=== PATIENT | male | born 1975 | race Caucasian/White ===

== ENCOUNTER → 2016-12-23 | Outpatient (CLI) | payer OTHER ==
[~2016-12-23] MED LIST: GABA-113 PO; KETO10TA PO; LEVO200T6 PO; LEVO25TA5 PO; LEVO75TA5 PO; METH4PAK PO; MULTTAB58 PO; OMEG10007 PO; OXYC1TAB3 PO
--- NOTE | 2016-12-23 08:15 | DIAGNOSTIC IMAGING REPORT ---
THYROID ULTRASOUND HISTORY: Thyroid goiter. COMPARISON: None. FINDINGS: Right lobe: 4.5 x 1.5 x 1.4 cm. No nodules. Left lobe: 4.6 x 1.6 x 1.5 cm. There is a dominant solid 2 cm nodule within the lower pole which contains calcification. Isthmus: 4 mm in thickness. No nodules. IMPRESSION: A dominant 2 cm solid hypoechoic nodule within the lower pole of the left thyroid lobe. Recommend ultrasound-guided fine-needle aspiration. Electronically signed by: Cristopher Eddy M.D. 12/23/2016 8:13 AM Dictated Date/Time: 12/23/2016 8:11 AM
== END | disposition home or self-care (01) ==
LOC: C.ULTR 07:39
PROVIDERS: ATTEND Internal Medicine
DX: E04.9 Nontoxic goiter, unspecified (principal)

== ENCOUNTER → 2016-12-29 | Outpatient (CLI) | payer OTHER ==
--- NOTE | 2016-12-29 13:44 | Discharge Instructions ---
Discharge Instructions Procedure Procedure Date: Dec 29, 2016. Reason for visit: Thyroid Nodule L Inferior. Discharge Discharge Date: Dec 29, 2016. Discharge Diagnosis: same Instructions Activity Recommendations: No limitations Return to School/Work: no limitations Recommended Home Diet: Resume Previous Diet Provider Instructions: ACTIVITY RECOMMENDATIONS: * Rest today. * Resume regular activity in one day. MEDICATIONS: * May take Tylenol or Ibuprofen as needed for pain. DIET: * Resume previous diet. SPECIAL CARE INSTRUCTIONS: Call your doctor if: * Temperature above 101 degrees F. * Pain not relieved by pain medicine ordered. * Increased drainage or redness from incision. * Notify your doctor with any questions or concerns. Call your doctor or go to the nearest Emergency Department if you experience: * Increased chest pain or shortness of breath. FOLLOW UP VISIT: Follow-up with Referring Physician as scheduled. Allergies Coded Allergies: Amoxicillin (Verified Allergy, Intermediate, rash, 10/01/15) POLLEN (Verified Allergy, Intermediate, congestion, 10/01/15) Penicillins (Verified Allergy, Mild, RASH, 10/01/15) Raul Fitch Recommendations: Call your doctor if: * Temperature above 101 degrees * Pain not relieved by pain medicine ordered * There is increased drainage or redness from any incision * You have any unanswered questions or concerns. Your Doctors Instructions noted above were prepared by provider Cristopher Eddy. Patient Signature Section: Patient Instructions Signature Page Alan Nava Patient (or Guardian) Signature/Date: I have read and understand the instructions given to me by my caregivers. Caregiver/RN/Doctor Signature/Date: The above-named patient and/or guardian has received patient instructions on this date. + Original Patient Signature Page (only) stays with chart. Please make copy for patient.
--- NOTE | 2016-12-29 13:53 | DIAGNOSTIC IMAGING REPORT ---
ULTRASOUND-GUIDED FINE-NEEDLE ASPIRATION OF A LEFT THYROID NODULE HISTORY: Left thyroid nodule. COMPARISON: Thyroid ultrasound 12/23/2016. PROCEDURE: Written informed consent was obtained. The neck was prepped and draped in the usual sterile fashion. 1% lidocaine was used for local anesthesia. A total of 2 passes using a 25-gauge needle were made through the left thyroid nodule under ultrasound guidance. Specimens were given to the on-site pathologist who determined adequate tissue for diagnosis. The patient tolerated the procedure well. There were no immediate complications. IMPRESSION: Successful ultrasound-guided fine-needle aspiration of a left thyroid nodule. Electronically signed by: Cristopher Eddy M.D. 12/29/2016 1:51 PM Dictated Date/Time: 12/29/2016 1:51 PM
== END | disposition home or self-care (01) ==
LOC: C.ULTR 12:48
PROVIDERS: ATTEND Internal Medicine Endocrinology, Diabetes & Metabolism
DX: C73 Malignant neoplasm of thyroid gland (principal)

== ENCOUNTER 2017-02-11 09:53 | Inpatient (IN) | payer OTHER ==
[2017-02-02 13:42] VITALS: BMI 34.0
--- NOTE | 2017-02-02 14:21 | PAT Medication Instructions ---
Service Date Feb 02, 2017. Current Home Medication List Fish Oil ([place]ison-3), 1 CAP PO QDD Levothyroxine Sodium (Levothyroxine Sodium), 1 TAB PO QAM Multiple Vitamin (Multivitamin), 1 TAB PO QDD Medication Instructions For Your Scheduled Surgery - Hold the following medications starting today 02/02/17: Fish Oil (Madison-3), 1 CAP PO QDD - Hold the following medications the morning of surgery: Multiple Vitamin (Multivitamin), 1 TAB PO QDD - Take the following medications the morning of surgery with a sip of water: Levothyroxine Sodium (Levothyroxine Sodium), 1 TAB PO QAM If you have any questions please call us at [phone] or [phone] ( Rosa Maria) or [phone]
[2017-02-02 14:48] LABS: BASO % 0.2 %; BASO ABS # 0.01 K/uL (0-0.2); COMPLETE YES; EOS % 0.7 %; HEMATOCRIT 41.8 % (42-52); IG% 0.2 %; LYMPH % 33.5 %; LYMPH ABS # 1.79 K/uL (1.2-3.4); MEAN CELL VOLUME 88.4 fL (80-100); MEAN CORPUSCULAR HEMOGLOBIN 30.7 pg (25-34); MEAN CORPUSCULAR HGB CONC 34.7 g/dl (32-36); MONO % 8.4 %; PLATELET COUNT 249 K/uL (130-400); RED BLOOD COUNT 4.73 M/uL (4.7-6.1); WHITE BLOOD COUNT 5.35 K/uL (4.8-10.8)
[2017-02-02 15:12] LABS: BUN/CREATININE RATIO 22.4 (10-20); CALCIUM 8.8 mg/dl (8.5-10.1); CREATININE 1.1 mg/dl (0.60-1.40); POTASSIUM 3.9 mmol/L (3.5-5.1)
[2017-02-11] VITALS (9 sets, daily range): BP systolic 114–142; BP diastolic 71–80; PULSE 54–71; TEMP 36.5–36.8; O2SAT 96–100; Ht 182.9 cm; Wt 113.8 kg
[~2017-02-11] VITALS: Ht 182.9 cm; Wt 113.8 kg
[~2017-02-11 09:53] MED LIST changes: +CLINDAMYCIN IV 900 MG in DEXTROSE 5% ADD-VANTAGE 100ML 100 ML IV SCH; +CLINDAMYCIN PHOS 150 MG/ML 2 ML VIAL IV SCH; -GABA-113 PO; -KETO10TA PO; +LACTATED RINGER'S 1000ML 1,000 ML IV SCH; -LEVO200T6 PO; -LEVO25TA5 PO; -METH4PAK PO; -OXYC1TAB3 PO
[2017-02-11] MEDS ORDERED: ONDANSETRON INJ 2 MG/ML 2 ML VIAL IV PRN ×2 (12:15→15:45)
[2017-02-11] MEDS ORDERED: EpHEDrine SULFATE INJ 50 MG/ML AMP IV PRN (12:15)
[2017-02-11] MEDS ORDERED: PHENYLEPHRINE 100MCG/ML 5ML SYR IV PRN (12:15)
[2017-02-11] MEDS ORDERED: ATROPINE SULFATE 0.1 MG/ML 5ML SYR IV PRN (12:15)
[2017-02-11] MEDS ORDERED: LIDOCAINE HCL 2% 2 ML VIAL (20MG/ML) ONE (12:27)
[2017-02-11] MEDS ORDERED: MIDAZOLAM HCL 1 MG/ML 2ML VIAL ONE (12:27)
[2017-02-11] MEDS ORDERED: PROPOFOL IV EMULSION 10 MG/ML 20 ML VIAL IV ONE (12:27)
[2017-02-11] MEDS ORDERED: ROCURONIUM BROMIDE 10 MG/ML 5 ML VIAL ONE (12:27)
[2017-02-11] MEDS ORDERED: SUCCINYLCHOLINE CHLORIDE 20 MG/ML 10 ML VIAL IV ONE (12:27)
[2017-02-11] MEDS ORDERED: FENTANYL CITRATE INJ 50 MCG/1 ML 2 ML VIAL ONE ×2 (12:28→16:04)
--- NOTE | 2017-02-11 12:45 | History & Physical Bridge Note ---
H&P Re-Evaluation Bridge Note: I have examined the patient, reviewed the History & Physical and in the interval since the performance of the History & Physical I have noted the following changes of clinical significance: No changes noted
[2017-02-11] MEDS ORDERED: LIDOCAINE/EPINEPHRINE 1% 20 ML VIAL ONE (13:15)
[2017-02-11] MEDS ORDERED: BACITRACIN OINT 15 GM TUBE ONE (13:15)
[2017-02-11] MEDS ORDERED: THROMBIN 5000 UNITS KIT ONE (13:16)
[2017-02-11] MEDS ORDERED: DEXAMETHASONE SOD INJ 4 MG/ML VIAL ONE (13:45)
[2017-02-11] MEDS ORDERED: ONDANSETRON INJ 2 MG/ML 2 ML VIAL ONE (13:45)
[2017-02-11] MEDS ORDERED: SURGICEL ABSORB HEMOSTAT 2IN X 14IN TOP ONE (15:30)
[2017-02-11] MEDS ORDERED: LACTATED RINGER'S 1000ML 1,000 ML IV SCH (15:37)
--- NOTE | 2017-02-11 15:37 | [facility] Operative Report ---
Operative Report Operative Date Feb 11, 2017. Pre-Operative Diagnosis Papillary carcinoma of thyroid Post-Operative Diagnosis SAME Procedure(s) Performed TOTAL THYROIDECTOMY Surgeon Dr. Jude Tipton Oyster Worker Surgeon(s) Candy Davis PA-C Estimated Blood Loss 100ml Findings ~2.5CM LEFT INFERIOR POLE AND ~1CM RIGHT INFERIOR POLE HARD NODULES WORRISOME FOR PAPILLARY THYROID CA Specimens a. total thyroidectomy: double stitch right superior poll, single stitch left superior poll I attest to the content of the Intraoperative Record and any orders documented therein. Any exceptions are noted below.
[2017-02-11] MEDS ORDERED: HYDROCODONE/ACETAMOPHEN 5/325MG TAB PO PRN (15:45)
[2017-02-11] MEDS: HYDROmorphone INJ 2 MG/ML SYR/VIAL IV PRN ×2 (16:23→16:28)
--- NOTE | 2017-02-11 16:44 | OPERATIVE REPORT ---
DATE OF OPERATION: 02/11/2017 PREOPERATIVE DIAGNOSIS: Papillary thyroid carcinoma. POSTOPERATIVE DIAGNOSIS: Papillary thyroid carcinoma. PROCEDURE: Total thyroidectomy. SURGEON: Dr. Hart. MICROBIOLOGY INSTRUCTOR: DIANA Davis. ESTIMATED BLOOD LOSS: 100 mL. FINDINGS: Very firm, approximately 2.5 cm left inferior pole and approximately 1 cm right inferior pole thyroid nodules, suspicious for papillary thyroid carcinoma. SPECIMENS: Total thyroidectomy for permanent pathological assessment. DRAINS: None. COMPLICATIONS: None. INDICATIONS: The patient is a pleasant 41-year-old male who unfortunately had a fine needle aspiration biopsy of a left thyroid nodule that was suspicious for papillary thyroid carcinoma. He presents for the above-mentioned procedure on an inpatient elective basis. DESCRIPTION OF PROCEDURE: After informed consent had been obtained from the patient, the patient was wheeled into the operating room and placed on the operating table in supine position. Monitors were placed. After induction of general endotracheal anesthesia with a size 8 nerve integrity monitor endotracheal tube the patient's head and neck were gently extended. The marking pen was used to outline the planned 6 cm incision in a natural skin crease 2 fingerbreadths above the level of clavicles. A total of 3 mL of 1% lidocaine with 1:100,000 epinephrine was used to inject the skin and subcutaneous tissues overlying the planned incision site. The skin of the neck and chest were then prepped and draped in the usual sterile fashion. A #15 scalpel was then used to make the incision through the skin, subcutaneous tissue, and platysma. Subplatysmal flaps were raised superiorly to the level of the thyroid notch and inferiorly to the level of clavicles. The median raphe of the strap muscle was divided using Bovie electrocautery. The strap muscles were retracted laterally for better exposure due to the hard malignancy that was encountered and the strap muscles was divided transversely using a Harmonic scalpel. The right side was first addressed. The middle thyroid vein as well as superior and inferior thyroid vascular pedicles were divided adjacent to the thyroid capsule using the Harmonic scalpel. Dissection was carried lateral to medial with care to identify and preserve the right recurrent laryngeal nerve as well as superior and inferior parathyroid candidates. The left side was then addressed in a similar fashion. The intraoperative findings of approximately 2.5 cm very firm left inferior pole and very firm approximately 1 cm right inferior pole thyroid nodule suspicious for papillary thyroid carcinoma. The thyroid gland was then from the trachea at Monteiro's ligament using Harmonic scalpel. Orienting sutures were placed on the total thyroidectomy specimen which was sent off for permanent pathological assessment. The wound was then copiously irrigated with sterile water. This wound was suctioned. Bipolar electrocautery was used to achieve adequate hemostasis. Small pieces of Surgicel followed by topical spray thrombin placed into the bilateral tracheoesophageal grooves for added hemostatic effect. The transversely divided strap muscles were then reapproximated bilaterally using several simple interrupted 3-0 Vicryl sutures. The strap muscle was then reapproximated in the midline using a simple running interlocked 3-0 Vicryl suture. The platysma was closed with several deep 4-0 Monocryl sutures. The skin was then closed with a simple running subcuticular 5-0 Monocryl suture. The incision was cleansed and dried. Dermabond was applied to the incision. This marked the end of the case. The patient tolerated the procedure well and there were no apparent complications. The patient was extubated and transferred to recovery room in stable condition. I attest to the content of the Intraoperative Record and any orders documented therein. Any exceptio ns are noted below.
[2017-02-11] MEDS ORDERED: MULTIVITAMIN TAB PO SCH (17:45)
[2017-02-11] MEDS ORDERED: ACETAMINOPHEN 325 MG TAB PO PRN (17:45)
--- NOTE | 2017-02-11 20:11 | Anesthesiology Progress Note ---
Anesthesia Post Op Note Date & Time Feb 11, 2017 at 20:11 Vital Signs Pain Intensity: 4.0 Vital Signs Past 12 Hours Date Time Temp Pulse Resp B/P Pulse Ox O2 Delivery O2 Flow Rate FiO2 02/11/17 19:34 36.7 71 16 114/71 98 Nasal Cannula 2.0 02/11/17 18:26 36.8 66 16 124/71 99 Nasal Cannula 2.0 02/11/17 17:39 36.6 65 16 132/75 99 Nasal Cannula 2.0 02/11/17 17:30 100 Nasal Cannula 3.0 02/11/17 17:27 100 Nasal Cannula 3.0 02/11/17 17:10 36.7 54 16 142/80 100 Nasal Cannula 3.0 02/11/17 16:47 36.4 02/11/17 16:46 58 16 02/11/17 16:46 58 16 146/83 100 02/11/17 16:41 65 16 02/11/17 16:41 64 152/88 100 02/11/17 16:36 62 16 02/11/17 16:36 62 144/82 100 02/11/17 16:31 63 22 02/11/17 16:31 63 22 144/80 100 02/11/17 16:26 61 21 02/11/17 16:26 61 21 152/81 100 02/11/17 16:21 63 8 148/89 100 02/11/17 16:21 63 8 02/11/17 16:18 146/86 02/11/17 16:11 36.4 57 16 147/86 100 Mask 10 02/11/17 10:14 36.5 60 18 115/72 97 Room Air Notes Mental Status: alert / awake / arousable, participated in evaluation Pt Amnestic to Procedure: Yes Nausea / Vomiting: adequately controlled Pain: adequately controlled Airway Patency, RR, SpO2: stable & adequate BP & HR: stable & adequate Hydration State: stable & adequate Anesthetic Complications: no major complications apparent
[2017-02-11 21:34] LABS: CALCIUM 8.4 mg/dl (8.5-10.1)
[2017-02-11 21:35] LABS: MAGNESIUM 1.8 mg/dl (1.8-2.4); PHOSPHORUS 3.1 mg/dl (2.5-4.9)
[2017-02-11] MEDS ORDERED: NURSING VERBAL MED ORDER ONE (22:15)
[2017-02-12 03:56] VITALS: BP 125/74; PULSE 57; TEMP 36.8; O2SAT 97
[2017-02-12 04:06] LABS: CALCIUM 8.1 mg/dl (8.5-10.1); PHOSPHORUS 4.3 mg/dl (2.5-4.9)
[2017-02-12] MEDS ORDERED: LEVOTHYROXINE 150 MCG TAB PO SCH (06:00)
--- NOTE | 2017-02-12 07:47 | ENT PROGRESS NOTE ---
DATE: 02/12/2017 The patient is postoperative day 1 status post total thyroidectomy for papillary thyroid carcinoma. Intraoperatively he had a 2.5 cm left inferior and approximately 1 cm right inferior very firm nodule suspicious for papillary thyroid carcinoma. Postoperatively the patient has done well. He denies any perioral or digital numbness or paresthesias. He is having some mild expected sore throat and mild dysphagia. Laboratory examinations are relatively normal with a mildly low calcium at 8.1 and an increasing phosphorus level of 4.3 suggesting that the patient might develop temporary postoperative hypoparathyroidism. He is asymptomatic at this time. EXAMINATION: The patient is a febrile and his vital signs are stable. He has a normal voice. His incision is clean, dry and intact with Dermabond in place and no evidence of hematoma or fluid collection. ASSESSMENT AND PLAN: The patient is postoperative day 1 status post total thyroidectomy. I would like to continue to monitor his laboratory examinations for one or two more blood draws. He will likely be discharged later today.
[2017-02-12 07:52] VITALS: BP 122/73; PULSE 55; TEMP 36.7; O2SAT 96
[2017-02-12 09:51] LABS: CALCIUM 8.2 mg/dl (8.5-10.1)
[2017-02-12 09:52] LABS: PHOSPHORUS 2.7 mg/dl (2.5-4.9)
--- NOTE | 2017-02-12 10:00 | Anesthesiology Progress Note ---
Anesthesia Post Op Note Date & Time Feb 12, 2017 at 09:59 Vital Signs Pain Intensity: 0.0 Vital Signs Past 12 Hours Date Time Temp Pulse Resp B/P Pulse Ox O2 Delivery O2 Flow Rate FiO2 02/12/17 07:52 36.7 55 16 122/73 96 Room Air 02/12/17 07:25 Room Air 02/12/17 03:56 36.8 57 16 125/74 97 Room Air 02/12/17 00:05 Room Air 02/11/17 23:39 36.8 61 16 128/77 96 Room Air Notes Mental Status: alert / awake / arousable Pt Amnestic to Procedure: Yes Nausea / Vomiting: adequately controlled Pain: adequately controlled Airway Patency, RR, SpO2: stable & adequate BP & HR: stable & adequate Hydration State: stable & adequate
--- NOTE | 2017-02-12 10:52 | Discharge Instructions ---
Discharge Instructions Date of Service Feb 12, 2017. Admission Reason for Admission: Papillary Carcinoma Of Thyroid Discharge Discharge Diagnosis / Problem: SAME Discharge Goals Goal(s): Therapeutic intervention Activity Recommendations Activity Limitations: as noted below 1. LIGHT ACTIVITY FOR 2 WEEKS 2. NO DRIVING WHILE ON [place] 3. KEEP INCISION DRY UNTIL FOLLOW UP APPT 4. ICE TO NECK MUCH TOLERATED . Current Hospital Diet Patient's current hospital diet: Full Liquid Diet Discharge Diet Recommended Diet: Regular Diet Procedures Procedures Performed: Total Thyroidectomy Pending Studies Studies pending at discharge: no Medical Emergencies . Who to Call and When: Medical Emergencies: If at any time you feel your situation is an emergency, please call 911 immediately. . Non-Emergent Contact Non-Emergency issues call your: Surgeon . . "Provider Documentation" section prepared by Jude Tipton. VTE Core Measure Inpt VTE Proph given/why not?: SCD's
[2017-02-12 11:25] VITALS: BP 122/73; PULSE 55; TEMP 36.7; O2SAT 96
--- NOTE | 2017-02-12 11:33 | DISCHARGE SUMMARY ---
PREOPERATIVE DIAGNOSIS: Papillary thyroid carcinoma. POSTOPERATIVE DIAGNOSIS: Papillary thyroid carcinoma. Hospital course: The patient is a 41-year-old male with a fine needle aspiration biopsy of a suspicious left thyroid nodule, which was suspicious for papillary thyroid carcinoma. He presented for total thyroidectomy. On 02/11/2017 with intraoperative findings of a very rock hard 2.5 cm left inferior and approximately 1 cm right inferior pole thyroid nodules. Postoperatively, he did well. His pain was adequately controlled. His calciums were within normal limits. He was discharged to home on postoperative day #1 in satisfactory condition. He should now take levothyroxine 150 mcg daily, which a prescription was provided by his powderman. A prescription for Aurora 5 mg/325 mg 1-2 tablets p.o. q. 4 hours p.r.n. were given. He should call my office if he develops any numbness or paresthesias involving his lips, fingers, or toes. He should call my office if he develops any involuntary muscle spasms or cramps. He should keep his incision dry for one week. He should keep ice on his neck as much as possible for one week. He was discharged to home in satisfactory condition on postoperative day #1.
[2017-05-29] MEDS ORDERED: METH4PAK PO (19:47)
== END 2017-02-12 12:38 | disposition home or self-care (01) | DRG 627 ==
LOC: ENRESERVTM → ENRESERVDT → C.ACU 09:53 → C.MSN 15:42
PROC: 0GTK0ZZ Resection of Thyroid Gland, Open Approach (ICD-10-PCS; principal; 2017-02-11 11:50)
DX: C73 Malignant neoplasm of thyroid gland (principal); E03.9 Hypothyroidism, unspecified; M19.90 Unspecified osteoarthritis, unspecified site; E66.9 Obesity, unspecified; Z68.34 Body mass index [BMI] 34.0-34.9, adult; Z79.899 Other long term (current) drug therapy

== ENCOUNTER → 2017-03-13 | Outpatient (CLI) | payer OTHER ==
[~2017-03-13] MED LIST changes: -CLINDAMYCIN IV 900 MG in DEXTROSE 5% ADD-VANTAGE 100ML 100 ML IV SCH; -CLINDAMYCIN PHOS 150 MG/ML 2 ML VIAL IV SCH; +GABA-113 PO; +KETO10TA PO; -LACTATED RINGER'S 1000ML 1,000 ML IV SCH; +LEVO200T6 PO; -LEVO75TA5 PO; +METH4PAK PO; +OXYC1TAB3 PO
[2017-03-13 17:19] LABS: THYROID STIMULATING HORMONE 7.45 uIu/ml (0.300-4.500)
== END | disposition home or self-care (01) ==
LOC: C.LABBC 13:40
PROVIDERS: ATTEND Internal Medicine Endocrinology, Diabetes & Metabolism
DX: E03.9 Hypothyroidism, unspecified (principal); C73 Malignant neoplasm of thyroid gland

== ENCOUNTER → 2017-04-24 | Outpatient (CLI) | payer OTHER ==
[2017-04-24 17:47] LABS: THYROID STIMULATING HORMONE 24.9 uIu/ml (0.300-4.500)
== END | disposition home or self-care (01) ==
LOC: C.LABBC 13:27
PROVIDERS: ATTEND Internal Medicine Endocrinology, Diabetes & Metabolism
DX: E03.9 Hypothyroidism, unspecified (principal)

== ENCOUNTER → 2017-05-22 | Outpatient (CLI) | payer OTHER ==
--- NOTE | 2017-05-22 14:52 | DIAGNOSTIC IMAGING REPORT ---
LUMBAR SPINE 5 VIEWS HISTORY: RADICULAR LOWER BACK COMPARISON: Lumbar spine 12/26/2015. FINDINGS: There is no fracture. No subluxation. Disc spaces are preserved. IMPRESSION: No fracture or subluxation within the lumbar spine. Electronically signed by: Cristopher Eddy M.D. 05/22/2017 2:51 PM Dictated Date/Time: 05/22/2017 2:50 PM
== END | disposition home or self-care (01) ==
LOC: C.RAD1850 14:29
PROVIDERS: ATTEND Physician Assistant
DX: M54.10 Radiculopathy, site unspecified (principal)

== ENCOUNTER 2017-05-24 05:45 | Emergency (ER) | payer OTHER ==
[~2017-05-24 05:45] MED LIST changes: -GABA-113 PO; -KETO10TA PO; -LEVO200T6 PO; -METH4PAK PO; -OXYC1TAB3 PO
[2017-05-24 05:48] VITALS: TEMP 36.5; Ht 182.9 cm
[2017-05-24] MEDS ORDERED: LEVO200T6 PO (06:11)
[2017-05-24] MEDS ORDERED: OXYCODONE IR HOME PACK PO ONE (06:15)
--- NOTE | 2017-05-24 06:16 | EMERGENCY ROOM VISIT NOTE ---
History First contact with patient: 05:54 Chief Complaint: BACK PAIN Stated Complaint: BACK PAIN History of Present Illness The patient is a 41 year old male who presents to the Emergency Room with complaints of low back pain that radiates down his right leg for the past several weeks who has had recurrent issues with his sciatica. He saw his family care doctor twice this week. They Advised him to take Motrin and a muscle relaxant. He has begun physical therapy. They're working on scheduling him an MRI. He describes the pain as aching, ranging in severity 8 out of 10 worse with movement and better with rest. Patient denies loss of bowel or bladder control, saddle anesthesia, fever, chills, IV drug abuse. No other complains per patient. Patient states he is just frustrated with his back pain. Review of Systems See HPI for pertinent positives & negatives. A total of 10 systems reviewed and were otherwise negative. Past Medical/Surgical History Medical Problems: (1) Hypothyroidism, Unspecified Surgical Problems: (1) S/P total thyroidectomy Social History Smoking Status: Never Smoker Smokeless Tobacco Use: No Drug Use: none Current/Historical Medications Scheduled Fish Oil ([place]-3), 1 CAP PO QDD Levothyroxine Sodium (Levothyroxine Sodium), 200 MCG PO DAILY Multiple Vitamin (Multivitamin), 1 TAB PO QDD Allergies Coded Allergies: POLLEN (Verified Allergy, Intermediate, congestion, 02/11/17) Penicillins (Verified Allergy, Unknown, RASH?, 02/11/17) Hives with Amoxicillin Physical Exam Vital Signs Date Time Temp Pulse Resp B/P (MAP) Pulse Ox O2 Delivery O2 Flow Rate FiO2 05/24/17 05:48 36.5 66 18 131/100 94 Room Air Physical Exam VITALS: Vitals are noted on the nurse's note and reviewed by myself. Vital signs stable. GENERAL: Pleasant male pacing around treatment room, in no acute distress, nondiaphoretic, well-developed well-nourished. SKIN: Capillary reflex less than 2 seconds. HEENT: Normocephalic. PERRLA. EOMI. Nares patent. Mucous membranes moist. Neck is supple without nuchal rigidity. HEART: Regular rate and rhythm without murmurs gallops or rubs. LUNGS: Clear to auscultation bilaterally without wheezes, rales or rhonchi. No retractions or accessory muscle use. ABDOMEN: Positive bowel sounds x 4. Normal tympanic percussion. Soft, nontender, without masses or organomegaly. Falk sign negative. No guarding or rebound tenderness. MUSCULOSKELETAL: No gross musculoskeletal defects. No pedal edema. No calf tenderness. No thoracic or lumbar tenderness on exam. Positive straight leg raise on the right NEURO: Patient was alert and oriented to person place and time. Normal sensation to light and sharp touch. Deep tendon reflexes 2+ patella bilaterally. No focal neurological deficits. Medical Decision & Procedures ED Course Prior records/ancillary studies reviewed. Triage Nursing notes reviewed. The patient's history was concerning for back pain. Differential diagnosis: Etiologies such as musculoskeletal, disc herniation, fracture, aortic disease, metastatic disease, cord compression, discitis, infection, renal colic, gastrointestinal, acute exacerbation of chronic back pain, sciatica, cauda equina, as well as others were entertained. Physical findings: As above. No focal neurologic findings noted. ER treatment provided: OxyIR home pack On reassessment the patient felt better. Diagnostics interpreted by me: Deferred This appears to be consistent with sciatica. Patient was neurovascularly and neurologically intact. This is an ongoing issue for him. He was advised to follow-up with his family care doctor and orthopedic spine and to continue his physical therapy. He was advised to stretch the area and to do course I think exercises. He was advised to return to the ER me for inability to walk, loss of bowel or bladder control, weakness, numbness, worsening signs or symptoms or as needed. The patient's physical examination and detailed history did not reveal any red flags for back pain such as those listed in the differential diagnosis. Therefore advanced diagnostics and consultations were felt to be unwarranted. By the evaluation outlined above emergent etiologies such as fracture, aortic disease, metastatic disease, infection, renal colic, gastrointestinal, cord compression, cauda equina, as well as others were deemed relatively unlikely. The pt informed about the findings as listed above. All questions were answered and pleased with the treatment. Return instructions were outlined and the patient was discharged in stable condition. Outpatient prescription management: Oxy IR 5mg 1-2 po Q4 hrs prn Referral: The patient was referred back to orthopedic spine and/or primary care physician for follow-up in 2 to 3 days for a recheck of the current condition. Medical Decision As above Impression Primary Impression: Sciatica of right side Departure Information Dispostion Home / Self-Care Condition GOOD Forms HOME CARE DOCUMENTATION FORM, IMPORTANT VISIT INFORMATION Patient Instructions Lumbar Radiculopathy, My [facility] Additional Instructions Oxycodone (OxyIR) 5mg: Take 1-2 pills every four hours for breakthrough pain. Avoid alcohol, operating machinery or dangerous equipment, working on ladders or roofs, DRIVING, or situations where being under the influence may be dangerous. It is recommended to use an [id number] stool softener such as Colace, 100mg twice daily while taking this medication to avoid constipation. Ibuprofen(Motrin, Advil) may be used for fever or pain. Use 600mg every six hours as needed. Take with food. Avoid using more than 2400mg in a 24 hour period. Do not use 2400mg per day for more than three consecutive days without physician direction. Prolonged inappropriate use can lead to stomach upset or ulcers. This medication can be taken if you need to drive, work, or perform activities which may be dangerous when taking narcotic pain medication. (AND/OR) Acetaminophen(Tylenol) may be used for fever or pain. Use 1000mg every six hours as needed. Avoid using more than 3000mg in a 24 hour period. This medication can be taken if you need to drive, work, or perform activities which may be dangerous when taking narcotic pain medication. Rest and avoid heavy lifting until your symptoms resolve and then gradually return to full activity. A good rule of thumb is if it hurts your back to perform a certain activity, then it should be avoided until you are healthy again. A heating pad, warm compresses, or a hot shower may help with tight muscles and can be done several times a day as needed. Continue current medications. Return to the ER immediately for any numbness, tingling, severe pain, loss of control of your bowels or bladder, inability to walk, or as needed. Follow up with your primary care physician/orthopedics spine within 3-5 days for a recheck of your current condition.
[2017-05-24] MEDS ORDERED: OXYC1TAB3 PO (06:18)
[2017-05-24 06:29] VITALS: BP 147/106; PULSE 76; O2SAT 97
[2017-05-29] MEDS ORDERED: METH4PAK PO (19:47)
== END 2017-05-24 06:31 | disposition home or self-care (01) ==
LOC: C.EDB 05:45 → C.EDA 06:31
DX: M54.31 Sciatica, right side (principal); E03.9 Hypothyroidism, unspecified; Z98.890 Other specified postprocedural states; Z79.899 Other long term (current) drug therapy; Z88.0 Allergy status to penicillin; Z91.09 Other allergy status, other than to drugs and biological substances

== ENCOUNTER 2017-05-28 03:25 | Observation (INO) | payer OTHER ==
[~2017-05-28] VITALS: Ht 182.9 cm; Wt 109.0 kg
[~2017-05-28 03:25] MED LIST changes: +LEVO200T6 PO; +OXYC1TAB3 PO
[2017-05-28] MEDS ORDERED: SODIUM CHLORIDE 0.9% 1000ML 1,000 ML IV STA (03:58)
[2017-05-28] MEDS ORDERED: HYDROmorphone INJ 1 MG/ML SYR IV STA (03:58)
[2017-05-28] MEDS ORDERED: HYDROmorphone INJ 1 MG/ML SYR IV PRN ×3 (04:00→11:45)
--- NOTE | 2017-05-28 04:02 | EMERGENCY ROOM VISIT NOTE ---
History Report prepared by Tanya: Jacinta Luther Under the Supervision of: Dr. Izaiah England M.D. First contact with patient: 03:46 Chief Complaint: BACK PAIN Stated Complaint: SCIATIC NERVE PAIN History of Present Illness The patient is a 41 year old male who presents to the Emergency Room with complaints of persistent back pain that has been ongoing for the past several weeks. He currently rates his discomfort as an 8/10 in severity. The patient states that at the beginning of April he started developing SI nerve pain. He states that he had been following with his PCP for his symptoms, but has been referred to Dr. Fulton, Orthopedics for further treatment. The patient denies having any MRI done. He states that his pain has been progressively worsening. The patient states that he has been prescribed Toradol and Gabapentin for his pain without relief of his symptoms. He additionally states that he has tried 5 mg of Oxycodone and Aleve for his pain. The patient denies any IV drug use. He additionally notes leg weakness. The patient denies any recent heavy lifting , fall, or injury. He states that every time he falls asleep he is woken with pain. The patient notes that this happened in November of 2015 after he was lifting in his gym. He denies any rash, fever, or loss of bowel or bladder. The patient reports worsened pain with sitting or lying flat. Source of History: patient Onset: past several weeks Position: back Symptom Intensity: 8/10 Timing: worsening, other (persistent) Modifying Factors (Worsening): other (sitting or lying flat) Associated Symptoms: + weakness (leg), No fevers, No rash Review of Systems See HPI for pertinent positives & negatives. A total of 10 systems reviewed and were otherwise negative. Past Medical & Surgical Medical Problems: (1) Hypothyroidism, Unspecified Surgical Problems: (1) S/P total thyroidectomy Family History FHx: cancer Social History Smoking Status: Never Smoker Drug Use: none Marital Status: in relationship Housing Status: lives with significant other Occupation Status: employed Current/Historical Medications Scheduled Fish Oil (Anna-3), 1 CAP PO QDD Gabapentin (Neurontin), 300 MG PO DAILY/UD Ketorolac (Toradol), 10 MG PO TID Levothyroxine Sodium (Levothyroxine Sodium), 200 MCG PO DAILY Multiple Vitamin (Multivitamin), 1 TAB PO QDD Allergies Coded Allergies: POLLEN (Verified Allergy, Intermediate, congestion, 05/28/17) Penicillins (Verified Allergy, Unknown, RASH?, 05/28/17) Hives with Amoxicillin Physical Exam Vital Signs Date Time Temp Pulse Resp B/P (MAP) Pulse Ox O2 Delivery O2 Flow Rate FiO2 05/28/17 05:38 58 16 125/97 95 Room Air 05/28/17 03:39 36.4 68 20 160/111 97 Room Air Physical Exam GENERAL: Patient is uncomfortable appearing and in moderate distress. HEENT: No acute trauma, normocephalic atraumatic, mucous membranes moist, no nasal congestion, no scleral icterus. NECK: No stridor, no adenopathy, no meningismus, trachea is midline. LUNGS: No dyspnea. Clear to auscultation and equal bilaterally. No wheeze, no rhonchi. HEART: Regular rate and rhythm. No murmurs, rubs, gallops appreciated. ABDOMEN: Soft, nontender, bowel sounds positive, no masses appreciated, no peritonitis. BACK: Vague tenderness over the right buttock with palpation. No midline tenderness, no CVA tenderness EXTREMITIES: Unable to put weight with plantar flexion. Normal motion all extremities, no cyanosis, no edema. NEUROLOGIC: Alert and oriented, no acute motor or sensory deficits, no focal weakness, cranial nerves grossly intact. SKIN: No rash, no jaundice, no diaphoresis. Medical Decision & Procedures Laboratory Results 05/28/17 04:10 Red Blood Count 4.83, Mean Corpuscular Volume 88.4, Mean Corpuscular Hemoglobin 30.6, Mean Corpuscular Hemoglobin Concent 34.7, Mean Platelet Volume 9.8, Neutrophils (%) (Auto) 63.5, Lymphocytes (%) (Auto) 24.7, Monocytes (%) (Auto) 9.4, Eosinophils (%) (Auto) 1.9, Basophils (%) (Auto) 0.4, Neutrophils # (Auto) 4.44, Lymphocytes # (Auto) 1.73, Monocytes # (Auto) 0.66, Eosinophils # (Auto) 0.13, Basophils # (Auto) 0.03 05/28/17 04:10 Test 05/28/17 04:10 White Blood Count 7.00 K/uL (4.8-10.8) Red Blood Count 4.83 M/uL (4.7-6.1) Hemoglobin 14.8 g/dL (14.0-18.0) Hematocrit 42.7 % (42-52) Mean Corpuscular Volume 88.4 fL (80-100) Mean Corpuscular Hemoglobin 30.6 pg (25-34) Mean Corpuscular Hemoglobin Concent 34.7 g/dl (32-36) Platelet Count 266 K/uL (130-400) Mean Platelet Volume 9.8 fL (7.4-10.4) Neutrophils (%) (Auto) 63.5 % Lymphocytes (%) (Auto) 24.7 % Monocytes (%) (Auto) 9.4 % Eosinophils (%) (Auto) 1.9 % Basophils (%) (Auto) 0.4 % Neutrophils # (Auto) 4.44 K/uL (1.4-6.5) Lymphocytes # (Auto) 1.73 K/uL (1.2-3.4) Monocytes # (Auto) 0.66 K/uL (0.11-0.59) Eosinophils # (Auto) 0.13 K/uL (0-0.5) Basophils # (Auto) 0.03 K/uL (0-0.2) RDW Standard Deviation 45.2 fL (36.4-46.3) RDW Coefficient of Variation 13.7 % (11.5-14.5) Immature Granulocyte % (Auto) 0.1 % Immature Granulocyte # (Auto) 0.01 K/uL (0.00-0.02) Erythrocyte Sedimentation Rate 2 mm/hr (0-14) Anion Gap 6.0 mmol/L (3-11) Est Creatinine Clear Calc Drug Dose 112.7 ml/min Estimated GFR () 96.1 Estimated GFR (Non- 82.9 BUN/Creatinine Ratio 30.3 (10-20) Calcium Level 9.0 mg/dl (8.5-10.1) C-Reactive Protein < 0.29 mg/dl (0-0.29) Laboratory results as reviewed by me. Medications Administered Medications (Trade) Dose Ordered Sig/Felicia Route Start Time Stop Time Status Last Admin Dose Admin Sodium Chloride 1,000 ml @ 999 mls/hr Q1H1M STAT IV 05/28/17 03:58 05/28/17 04:58 DC 05/28/17 04:14 999 MLS/HR Hydromorphone HCl (Dilaudid Inj) 1 mg NOW STAT IV 05/28/17 03:58 05/28/17 04:00 DC 05/28/17 04:14 1 MG Lorazepam (Ativan Inj) 1 mg NOW STAT IV 05/28/17 05:08 05/28/17 05:09 DC 05/28/17 05:08 1 MG ED Course 0351: The patient was evaluated in room A2. A complete history and physical exam was performed. 0358: Ordered Dilaudid Inj 1 mg IV, Sodium Chloride 1000 ml @ 999 mls/hr IV. 0400: Ordered Dilaudid Inj 1 mg IV. 0505: I reevaluated the patient and he notes that his pain is starting to return. 0508: Ordered Ativan Inj 1 mg IV. 0700: The patient was signed out to Dr. Mccauley at change of shift, pending MRI. Medical Decision Differential: Musculoskeletal, Disc Herniation, Fracture, Cord Compression, Discitis, Infectious, Aortic Pathology, Renal Colic, UTI/Pyelonephritis, Acute Exacerbation of Chronic Pain, Sciatica, Cauda Equina, amongst other pathologies entertained. Medication Reconciliation: I attest that I have personally reviewed the patient 's current medication list. Blood pressure screening: Patient was found to have an elevated blood pressure that is likely secondary to pain, but he was referred to their primary doctor for recheck and further treatment. 41 yr old male arrives in quite some distress due to right sided sciatica. Dealing with this over the last month without acute cause starting it. Gradually worsening and has tried steroids, toradol, gabapentin, oxy ir, etc without any improvement. Over last few days notes that he can not even get on tip toes. Does have some decreased strength right foot plantar flexion. With intractable pain, extended failed outpatient management and now some questionable weakness in right foot, I feel we have come to point of requiring MRI. Given Dilaudid and Ativan in attempt to ease pain as he is unable to lay flat at all. Took some time to get comfortable. Labs with normal CRP/ESR and I do not feel this represents osteo nor epidural abscess, thus I do not feel that IV contrast required. MRI without con of lumbar spine ordered. No evidence vascular compromise as cause of this. Patient signed out to Dr Mccauley awaiting MRI to be done and results. Impression Primary Impression: Intractable back pain Additional Impression: Right sided sciatica Scribe Attestation The scribe's documentation has been prepared under my direction and personally reviewed by me in its entirety. I confirm that the note above accurately reflects all work, treatment, procedures, and medical decision making performed by me. Departure Information Dispostion Still a Patient Referrals RV. Lindsay MD (PCP) Patient Instructions Back Pain - [facility], [facility] Problem Qualifiers
[2017-05-28 04:30] LABS: BASO % 0.4 %; BASO ABS # 0.03 K/uL (0-0.2); COMPLETE YES; EOS % 1.9 %; HEMATOCRIT 42.7 % (42-52); IG% 0.1 %; LYMPH % 24.7 %; LYMPH ABS # 1.73 K/uL (1.2-3.4); MEAN CELL VOLUME 88.4 fL (80-100); MEAN CORPUSCULAR HEMOGLOBIN 30.6 pg (25-34); MEAN CORPUSCULAR HGB CONC 34.7 g/dl (32-36); MEAN PLATELET VOLUME 9.8 fL (7.4-10.4); MONO % 9.4 %; NEUT % 63.5 %; PLATELET COUNT 266 K/uL (130-400); RED BLOOD COUNT 4.83 M/uL (4.7-6.1)
[2017-05-28 04:35] LABS: BLOOD UREA NITROGEN 33 mg/dl (7-18); BUN/CREATININE RATIO 30.3 (10-20); C-REACTIVE PROTEIN < 0.29 mg/dl (0-0.29); CARBON DIOXIDE 27 mmol/L (21-32); CHLORIDE 107 mmol/L (98-107); GLUCOSE 90 mg/dl (70-99); POTASSIUM 4.1 mmol/L (3.5-5.1); SODIUM 140 mmol/L (136-145)
[2017-05-28] MEDS ORDERED: LORAZEPAM 2 MG/ML 1 ML VIAL IV STA (05:08)
[2017-05-28] MEDS ORDERED: GABA-113 PO (05:26)
[2017-05-28] MEDS ORDERED: KETO10TA PO (05:31)
--- NOTE | 2017-05-28 07:33 | DIAGNOSTIC IMAGING REPORT ---
MRI LUMBAR SPINE WITHOUT IV CONTRAST CLINICAL HISTORY: Low back pain and right lower extremity radiculopathy. COMPARISON STUDY: Radiographs of the lumbar spine dated 05/22/2017. TECHNIQUE: MRI of the lumbar spine is performed utilizing various T1 and T2-weighted sequences in the axial and sagittal planes. IV contrast was not administered for this examination. FINDINGS: Lumbar spine: Vertebral body height and alignment are maintained throughout the lumbar spine. Mild degenerative endplate edema is seen at L5-S1. Normal marrow signal intensity is otherwise preserved. The transverse and spinous processes are intact as imaged. There is no evidence of spondylolysis. No destructive bony lesion is seen. Intervertebral discs: There is mild degenerative disc desiccation and loss of height at L5-S1. The remaining discs are normal in height and signal intensity. Spinal cord: The visualized spinal cord is normal in morphology and signal intensity. The conus medullaris terminates at the level of L1. The nerve roots of the cauda equina are normal in morphology. L1-L2: Unremarkable. L2-L3: Unremarkable. L3-L4: Unremarkable. L4-L5: Unremarkable. L5-S1: There is a posterior disc herniation eccentric to the right with annular fissure. An inferiorly extruded fragment eccentric to the right measures 1.3 cm as seen on sagittal image #6 and axial image #24. There is no significant acquired compromise of the central canal at this level. The herniated fragment impinges on the transiting right sacral nerve roots. There is mild right-sided subarticular stenosis. Facet arthropathy causes minimal right-sided neural foraminal stenosis. Sacrum: There is mild fatty marrow change in the sacrum. The sacrum is otherwise normal in appearance. Soft tissues: The paraspinous soft tissues are normal as imaged. The partially visualized retroperitoneal structures are grossly normal but incompletely assessed. IMPRESSION: 1. There is a disc herniation eccentric to the right with an inferiorly extruded fragment at L5-S1. This impinges on the transiting right-sided sacral nerve roots. 2. There is mild degenerative endplate edema at L5-S1. 3. No significant degenerative change is identified at the remaining lumbar levels. Electronically signed by: Rajesh Carrizales M.D. 05/28/2017 7:32 AM Dictated Date/Time: 05/28/2017 7:27 AM
[2017-05-28] MEDS ORDERED: ONDANSETRON INJ 2 MG/ML 2 ML VIAL IV PRN ×2 (10:45→11:45)
[2017-05-28] MEDS ORDERED: OXYCODONE/ACETAMINOPHEN 5-325 TAB PO PRN (11:45)
[2017-05-28] MEDS ORDERED: ACETAMINOPHEN 325 MG TAB PO PRN (11:45)
[2017-05-28] MEDS ORDERED: KETOROLAC TROMETHAMINE 30 MG/ML VIAL IV PRN (11:45)
--- NOTE | 2017-05-28 12:07 | History and Physical ---
History & Physical Date May 28, 2017. Chief Complaint Low back pain; Radiculapathy lower extremity History of Present Illness The patient is a 41 year old male with complaints of low back pain and radiculapathy of lower extremities. He has a difficult time laying supine. More comfortable standing up. Seen by Dr. Fulton yesterday at [facility] [place], awaiting MRI. Patient states that this is the worst pain he has ever felt. Denies bowel or bladder incontinence or retention. Past Medical/Surgical History Medical Problems: (1) Hypothyroidism, Unspecified (2) Lumbar disc herniation Surgical Problems: (1) S/P total thyroidectomy Allergies Coded Allergies: POLLEN (Verified Allergy, Intermediate, congestion, 05/28/17) Penicillins (Verified Allergy, Unknown, RASH?, 05/28/17) Hives with Amoxicillin Home Medications Scheduled Fish Oil ([place]-3), 1 CAP PO QDD Gabapentin (Neurontin), 300 MG PO DAILY/UD Ketorolac (Toradol), 10 MG PO TID Levothyroxine Sodium (Levothyroxine Sodium), 200 MCG PO DAILY Multiple Vitamin (Multivitamin), 1 TAB PO QDD Physical Examination Skin: warm/dry Eyes: normal inspection ENT: normal ENT inspection Head: normocephalic Neck: supple Respiratory/Chest: lungs clear Cardiovascular: regular rate, rhythm Abdomen / GI: normal bowel sounds Back: + pertinent finding (pain with palpation and percussion of lumbar segments) Extremities: + pertinent finding (pain with straight leg raise on the right lower extremity) Diagnosis disc herniation at lumbar L5-S1 Plan of Treatment Admit to observation status. Pain control with IV dilaudid, oral percocet 5/325 , IV toradol and IV steroids for inflammation and pain. Consult pain management for their recommendation for pain. Consider lumbar discectomy surgery at later time. DVT prophylaxis.
[2017-05-28 12:19] LABS: BASO % 0.3 %; BASO ABS # 0.02 K/uL (0-0.2); COMPLETE YES; EOS % 1.7 %; HEMATOCRIT 38.9 % (42-52); IG% 0.2 %; MEAN CELL VOLUME 88.4 fL (80-100); MEAN CORPUSCULAR HEMOGLOBIN 30.9 pg (25-34); MEAN PLATELET VOLUME 9.4 fL (7.4-10.4); MONO % 10.2 %; NEUT % 56.6 %; PLATELET COUNT 227 K/uL (130-400); WHITE BLOOD COUNT 5.81 K/uL (4.8-10.8)
[2017-05-28 12:25] VITALS: O2SAT 93; Ht 182.9 cm; Wt 109.0 kg
[2017-05-28] MEDS ORDERED: IV FLUIDS COMPLETED PRN (12:30)
[2017-05-28 12:57] VITALS: O2SAT 98
[2017-05-28 13:10] VITALS: BP 121/76; PULSE 47; TEMP 36.4; O2SAT 95
[2017-05-28] MEDS: DEXAMETHASONE INJ 8 MG in SYRINGE 0 ML IV SCH ×2 (14:34→21:31)
[2017-05-28] MEDS: LACTATED RINGER'S 1000ML 1,000 ML IV SCH (14:40)
[2017-05-28] MEDS: GABAPENTIN 300 MG CAP PO SCH ×2 (14:41→21:30)
[2017-05-28 15:50] VITALS: BP 117/71; PULSE 62; TEMP 36.4; O2SAT 97
[2017-05-28] MEDS: DOCUSATE SODIUM 100 MG CAP PO SCH (21:30)
[2017-05-28 23:13] VITALS: BP 118/63; PULSE 56; TEMP 36.7; O2SAT 96
[2017-05-29] MEDS: LACTATED RINGER'S 1000ML 1,000 ML IV SCH (00:42)
[2017-05-29] MEDS: DEXAMETHASONE INJ 8 MG in SYRINGE 0 ML IV SCH (05:42)
[2017-05-29 06:50] VITALS: BP 136/94; PULSE 67; TEMP 36.7; O2SAT 96
[2017-05-29] MEDS ORDERED: LEVOTHYROXINE 200 MCG TAB PO ONE ×2 (07:00→07:45)
[2017-05-29] MEDS: GABAPENTIN 300 MG CAP PO SCH ×3 (07:23→20:37)
[2017-05-29] MEDS: DOCUSATE SODIUM 100 MG CAP PO SCH ×2 (07:23→20:37)
--- NOTE | 2017-05-29 07:23 | Progress Note ---
Subjective Date of Service: May 29, 2017. Subjective Pt evaluation today including: conversation w/ patient (rounded on patient last evening, improved) Voiding: no voiding problems, no incontinence Problem List Medical Problems: (1) Hypothyroidism, Unspecified Status: Chronic (2) Intractable back pain Status: Acute (3) Right sided sciatica Status: Acute (4) Sciatica of right side Status: Acute Review of Systems Constitutional: + see HPI Musculoskeletal: + muscle pain (back and severe lower extremity pain) Patient has disc herniation L5-S1. managed with medication and possible injection today or tomorrow. Possible surgery next week if we can not control pain All Other Systems: Reviewed and Negative Objective Vital Signs Date Time Temp Pulse Resp B/P (MAP) Pulse Ox O2 Delivery O2 Flow Rate FiO2 05/29/17 06:50 36.7 67 19 136/94 (108) 96 Room Air 05/28/17 23:13 36.7 56 16 118/63 (81) 96 Room Air 05/28/17 20:10 Room Air 05/28/17 15:50 36.4 62 18 117/71 (86) 97 Room Air 05/28/17 13:15 Room Air 05/28/17 13:10 36.4 47 16 121/76 (91) 95 Room Air 05/28/17 12:57 62 20 109/76 98 05/28/17 12:25 93 Room Air 05/28/17 12:15 47 24 114/75 93 Room Air 05/28/17 11:56 96 Room Air 05/28/17 11:49 52 05/28/17 11:27 61 20 146/94 98 Room Air 05/28/17 07:55 72 20 151/92 97 Room Air Laboratory Results Last 24 Hours Test 05/28/17 12:11 White Blood Count 5.81 K/uL Red Blood Count 4.40 M/uL Hemoglobin 13.6 g/dL Hematocrit 38.9 % Mean Corpuscular Volume 88.4 fL Mean Corpuscular Hemoglobin 30.9 pg Mean Corpuscular Hemoglobin Concent 35.0 g/dl Platelet Count 227 K/uL Mean Platelet Volume 9.4 fL Neutrophils (%) (Auto) 56.6 % Lymphocytes (%) (Auto) 31.0 % Monocytes (%) (Auto) 10.2 % Eosinophils (%) (Auto) 1.7 % Basophils (%) (Auto) 0.3 % Neutrophils # (Auto) 3.29 K/uL Lymphocytes # (Auto) 1.80 K/uL Monocytes # (Auto) 0.59 K/uL Eosinophils # (Auto) 0.10 K/uL Basophils # (Auto) 0.02 K/uL RDW Standard Deviation 45.2 fL RDW Coefficient of Variation 13.8 % Immature Granulocyte % (Auto) 0.2 % Immature Granulocyte # (Auto) 0.01 K/uL
[2017-05-29] MEDS ORDERED: NURSING VERBAL MED ORDER ONE (07:30)
[2017-05-29] MEDS ORDERED: HYDROmorphone HCL 2 MG TAB PO PRN (07:45)
[2017-05-29] MEDS ORDERED: METHYLPREDNISOLONE 4MG TAB, 6 DAY TAPER PO SCH (09:00)
[2017-05-29] MEDS: METHYLPREDNISOLONE 4 MG TAB PO SCH ×4 (09:27→20:36)
--- NOTE | 2017-05-29 09:31 | Pain Management Consultation ---
Pain Management Consultation Date of Consultation May 29, 2017. Reason for Consultation Lumbar radiculopathy. History Alan Nava is a 41-year-old male who is admitted to [facility] with complaints of experiencing low back pain and right leg radicular pain. Pain is predominantly located in right lumbar spine needed buttock and radiates to into the posterolateral mid ankle region and a foot. Symptoms are characterized as constant burning sensation in the distal lumbar spine and sharp, shooting, lancinating episode in the leg. Symptoms have been present for several weeks duration. He had previous episode similar to this approximately one year ago. He was treated conservatively with steroids, and anti-inflammatory agents and muscle relaxants with resolution of his symptoms up until recently. He denies any specific falls or trauma or inciting event to cause his symptoms with this episode. Pain rated as 8/10 on visual analog scale when severe and 4/10 when minimal. He reports improved symptoms since the admitted to the hospital. Activities that exacerbate patient's symptoms include laying in supine position , sitting and standing. Activities that alleviate patient's symptoms include slow ambulation and being in the position. Reports functional impairment including vigorous level of activities required for daily living as a result of symptoms. Current treatments include IV hydromorphone, oral oxycodone and gabapentin with moderate efficacy. He reports sensation of feeling "foggy" due to gabapentin. Previous treatments include prednisone and cyclobenzaprine as an outpatient with animal efficacy. Previous evaluations, managing, laboratory evaluation and other studies include MRI this admission. He denies any bowel bladder incontinence, saddle anesthesia, numbness, associated with his back pain but does report weakness in dorsiflexion of his right foot. Past Medical: Thyroid disorder. Pain Location 1 - 2 - Past Medical/Surgical History (1) S/P total thyroidectomy Family History FHx: cancer Social / Work History Smoking Status: Never smoker Marital Status: in relationship Housing Status: lives with significant other Occupation: employed Allergies Coded Allergies: POLLEN (Verified Allergy, Intermediate, congestion, 05/28/17) Penicillins (Verified Allergy, Unknown, RASH?, 05/28/17) Hives with Amoxicillin Medications Current Inpatient Medications Medications (Trade) Dose Ordered Sig/Felicia Route Start Time Stop Time Status Last Admin Dose Admin Acetaminophen (Tylenol Tab) 650 mg Q6H PRN PO 05/28/17 11:45 06/27/17 11:44 Docusate Sodium (coLACE CAP) 100 mg BID PO 05/28/17 21:00 06/27/17 20:59 05/29/17 07:23 100 MG Ondansetron HCl (Zofran Inj) 4 mg Q6H PRN IV 05/28/17 11:45 06/27/17 11:44 Oxycodone/ Acetaminophen (Percocet 5-325mg Tab) Moderate to Severe tahir... Q4H PRN PO 05/28/17 11:45 06/11/17 11:44 05/28/17 13:17 2 TAB Hydromorphone HCl (Dilaudid Inj) 1 mg Q2H PRN IV 05/28/17 11:45 06/11/17 11:44 Gabapentin (Neurontin Cap) 300 mg TID PO 05/28/17 14:00 06/27/17 13:59 05/29/17 07:23 300 MG Ketorolac Tromethamine (Toradol Inj) 30 mg Q6H PRN IV 05/28/17 11:45 06/02/17 11:44 Miscellaneous (Iv Fluids Completed) 1 ea PRN PRN N/A 05/28/17 12:30 05/28/18 12:29 Dexamethasone Sodium Phosphate 4 mg/Syringe 1 ml @ 1 mls/min Q6H IV 05/29/17 12:00 06/28/17 11:59 Levothyroxine Sodium (Synthroid Tab) 200 mcg DAILYBB PO 05/30/17 06:00 06/29/17 05:59 Hydromorphone HCl (Dilaudid Tab) 1 mg Q3HWA PRN PO 05/29/17 07:45 06/12/17 07:44 Review of Systems Denies any recent history of fever, night sweats, unexplained weight loss, or constitutional symptoms. Otherwise, 8 point review of system has been reported to be negative. Physical Exam Height & Weight: Height 6 feet, 0.00 inches. Weight 109.000 (Kilograms) 240 (Pounds) Last Vital Signs Documentation Date Time Temp Pulse Resp B/P (MAP) Pulse Ox O2 Delivery O2 Flow Rate FiO2 05/29/17 07:45 Room Air 05/29/17 06:50 36.7 67 19 136/94 (108) 96 Exam: Mr. Nava is alert and oriented. Mood and affect are appropriate. Short-term and long-term memory is intact. Sensorium is clear. Inspection of the lumbar spine demonstrates loss of lumbar lordosis. No lesions are noted in the lumbar spine region. Provocative testing of the facet joints is unremarkable. Provocative testing of the sacroiliac joints bilaterally including 5 provocative tests is negative. Moderate myofascial tenderness or trigger points identifiable in the right gluteal muscle distally. Neurologically, straight leg raising is negative on the left side but marginally positive on the right side at 45 with no changes noted Achilles stretch. Sensation in the lower extremity demonstrates slightly decreased sensation in the posterior lateral aspect of the right distal leg compared to the left side. He demonstrates slight weakness in dorsiflexion of the right foot compared to the left side. No pathologic reflexes are noted in the lower extremities. Gait is guarded. Laboratory Laboratory Results (Last CBC): 05/28/17 12:11 Red Blood Count 4.40 L, Mean Corpuscular Volume 88.4, Mean Corpuscular Hemoglobin 30.9, Mean Corpuscular Hemoglobin Concent 35.0, Mean Platelet Volume 9.4, Neutrophils (%) (Auto) 56.6, Lymphocytes (%) (Auto) 31.0, Monocytes (%) ( Auto) 10.2, Eosinophils (%) (Auto) 1.7, Basophils (%) (Auto) 0.3, Neutrophils # (Auto) 3.29, Lymphocytes # (Auto) 1.80, Monocytes # (Auto) 0.59, Eosinophils # ( Auto) 0.10, Basophils # (Auto) 0.02 Imaging MRI: non enhanced, reports reviewed, images reviewed MRI Findings IMPRESSION: 1. There is a disc herniation eccentric to the right with an inferiorly extruded fragment at L5-S1. This impinges on the transiting right-sided sacral nerve roots. 2. There is mild degenerative endplate edema at L5-S1. 3. No significant degenerative change is identified at the remaining lumbar levels. Electronically signed by: Rajesh Carrizales M.D. 05/28/2017 7:32 AM Dictated Date/Time: 05/28/2017 7:27 AM Past Records Previous Records: personally reviewed by me (Inpatient EMR) Assessment 1. Herniated Lumbar disk with radiculopathy. Recommendations 1. D?C Ketorolac. 2. D/C IV Decadron. Start Medrol dose pack and continue as outpatient to complete. 3. Right L5/S1 transforaminal epidural steroid injection as out patient next week. Scheduled. Dragon Voice Recognition This chart was completed in part utilizing [employer] Voice Recognition Software. Random word insertions, pronoun errors, and incomplete sentences are an occasional consequence of this system due to software limitations and ambient noise. Any questions or concerns about the content, text or information contained within the body of this dictation should be directly addressed to the provider for clarification.
[2017-05-29] MEDS ORDERED: DEXAMETHASONE INJ 4 MG in SYRINGE 0 ML IV SCH (12:00)
[2017-05-29 15:40] VITALS: BP 131/86; PULSE 67; TEMP 36.4; O2SAT 98
[2017-05-29] MEDS ORDERED: METH4PAK PO (19:47)
[2017-05-29 20:31] VITALS: BP 131/86; PULSE 67; TEMP 36.4; O2SAT 98
[2017-05-30] MEDS ORDERED: LEVOTHYROXINE 200 MCG TAB PO SCH (06:00)
[2017-05-30] MEDS ORDERED: METHYLPREDNISOLONE 4 MG TAB PO SCH ×2 (07:00→21:00)
[2017-05-31] MEDS ORDERED: METHYLPREDNISOLONE 4 MG TAB PO SCH (07:00)
[2017-06-01] MEDS ORDERED: METHYLPREDNISOLONE 4 MG TAB PO SCH (07:00)
[2017-06-02] MEDS ORDERED: METHYLPREDNISOLONE 4 MG TAB PO SCH (07:00)
[2017-06-03] MEDS ORDERED: METHYLPREDNISOLONE 4 MG TAB PO SCH (07:00)
--- NOTE | 2017-06-06 16:10 | EMERGENCY ROOM VISIT NOTE ---
ED Visit Note 41-year-old male with back pain was signed off to me at change of shift from Dr. England. MRI returns reveals a L5-S1 disc herniation. The patient is in considerable pain and will require admission. The case was discussed with Dr. Fulton.
--- NOTE | 2017-06-17 12:44 | Discharge Summary ---
Orthopedic Discharge Summary Admission Date/Reason May 28, 2017 at 11:51 Lumbar Disc Herniation. Discharge Date/Disposition May 29, 2017 Home Diagnosis Principal Diagnosis: disc herniation Consultations Pain management Admission Physical Exam As per Admitting History & Physical. Hospital Course admitted with severe pain . inability to sit and ambulate. Improved with medication . discharged home , improved and stable. Outpaient [facility] Discharge Instructions Please refer to the electronic Patient Visit Report (Discharge Instructions) for additional information.
== END 2017-05-29 21:00 | disposition home or self-care (01) ==
LOC: C.EDB 03:26 → C.MSW 11:51 → ENRESERV 12:31
PROVIDERS: ADMIT Orthopaedic Surgery Orthopaedic Surgery of the Spine; ATTEND Orthopaedic Surgery Orthopaedic Surgery of the Spine
DX: M51.26 Other intervertebral disc displacement, lumbar region (principal); E89.0 Postprocedural hypothyroidism

== ENCOUNTER → 2017-06-04 | Outpatient (CLI) | payer OTHER ==
[~2017-06-04] MED LIST changes: +GABA-113 PO; +KETO10TA PO; +METH4PAK PO; -OXYC1TAB3 PO
[2017-06-04 14:12] LABS: THYROID STIMULATING HORMONE 8.53 uIu/ml (0.300-4.500)
== END | disposition home or self-care (01) ==
LOC: C.LABBC 09:33
PROVIDERS: ATTEND Internal Medicine Endocrinology, Diabetes & Metabolism
DX: E03.9 Hypothyroidism, unspecified (principal)

== ENCOUNTER → 2017-07-07 | Outpatient (CLI) | payer OTHER ==
[~2017-07-07] MED LIST changes: -METH4PAK PO
--- NOTE | 2017-07-07 11:22 | DIAGNOSTIC IMAGING REPORT ---
Thyroid ultrasonography CLINICAL HISTORY: Hypothyroidism, papillary CARCINOMA OF THYROID COMPARISON STUDY: 12/23/2016 FINDINGS: The patient is status post a total thyroidectomy. No residual thyroid tissue is visualized. No pathologically enlarged lymph nodes are demonstrated. IMPRESSION: Postsurgical changes of a total thyroidectomy Electronically signed by: Lobo Bass M.D. 07/07/2017 11:21 AM Dictated Date/Time: 07/07/2017 11:20 AM
[2017-07-07 15:03] LABS: THYROID STIMULATING HORMONE 0.288 uIu/ml (0.300-4.500)
[2017-07-08 15:07] LABS: THYROGLOBULIN 1.2 NG/ML (2.8-40.9)
== END | disposition home or self-care (01) ==
LOC: C.ULTR 10:45
PROVIDERS: ATTEND Internal Medicine Endocrinology, Diabetes & Metabolism
DX: E03.9 Hypothyroidism, unspecified (principal); C73 Malignant neoplasm of thyroid gland

== ENCOUNTER → 2017-08-24 | Outpatient (CLI) | payer OTHER ==
[2017-08-24 10:01] LABS: THYROID STIMULATING HORMONE 0.297 uIu/ml (0.300-4.500)
[2017-08-25 16:12] LABS: THYROGLOBULIN 0.9 NG/ML (2.8-40.9)
== END | disposition home or self-care (01) ==
LOC: C.LAB1850 08:21
PROVIDERS: ATTEND Internal Medicine Endocrinology, Diabetes & Metabolism
DX: E88.09 Other disorders of plasma-protein metabolism, not elsewhere classified (principal); C73 Malignant neoplasm of thyroid gland

== ENCOUNTER → 2017-08-26 | Outpatient (CLI) | payer OTHER ==
--- NOTE | 2017-08-26 10:21 | DIAGNOSTIC IMAGING REPORT ---
NUCLEAR THYROID TREATMENT CLINICAL HISTORY: Papillary carcinoma of thyroid PROCEDURE: This is a 41 year-old male patient presenting with a clinical diagnosis of papillary thyroid cancer. Following discussion of treatment options, risks, benefits, and precautions, the patient was treated with an oral dosage of 30.3 mCi of iodine-131. The patient was followed by the referring clinician. IMPRESSION: Completed out on 131 treatment administered dosage of 30.3 mCi. Electronically signed by: Cristopher Eddy M.D. 08/26/2017 10:20 AM Dictated Date/Time: 08/26/2017 10:19 AM
== END | disposition home or self-care (01) ==
LOC: C.NUCL 08:48
PROVIDERS: ATTEND Internal Medicine Endocrinology, Diabetes & Metabolism
DX: C73 Malignant neoplasm of thyroid gland (principal)

== ENCOUNTER → 2017-08-28 | Outpatient (CLI) | payer OTHER ==
[2017-08-29 13:07] LABS: THYROGLOBULIN 10.4 NG/ML (2.8-40.9)
== END | disposition home or self-care (01) ==
LOC: C.LAB1850 12:07
PROVIDERS: ATTEND Internal Medicine Endocrinology, Diabetes & Metabolism
DX: C73 Malignant neoplasm of thyroid gland (principal)

== ENCOUNTER → 2017-11-19 | Outpatient (CLI) | payer OTHER ==
[2017-11-19 10:13] LABS: CHOLESTEROL/HDL RATIO 2.4; THYROID STIMULATING HORMONE 0.882 uIu/ml (0.300-4.500)
== END | disposition home or self-care (01) ==
LOC: C.LAB1850 07:55
PROVIDERS: ATTEND Internal Medicine Endocrinology, Diabetes & Metabolism
DX: Z13.220 Encounter for screening for lipoid disorders (principal); E03.9 Hypothyroidism, unspecified

== ENCOUNTER → 2017-12-23 | Outpatient (CLI) | payer OTHER ==
--- NOTE | 2017-12-23 09:15 | DIAGNOSTIC IMAGING REPORT ---
NECK ULTRASOUND HISTORY: M54.2 Neck pain on left [id number] COMPARISON: Thyroid ultrasound 07/07/2017. FINDINGS: Real-time sonographic imaging of the neck was performed. No abnormality identified within the left side of the neck. No lymphadenopathy, masses, fluid collections identified. IMPRESSION: No sonographic abnormality within the left side of the neck. Electronically signed by: Cristopher Eddy M.D. 12/23/2017 9:14 AM Dictated Date/Time: 12/23/2017 8:46 AM
== END | disposition home or self-care (01) ==
LOC: C.ULTR 08:04
PROVIDERS: ATTEND Internal Medicine
DX: M54.2 Cervicalgia (principal)

== ENCOUNTER → 2018-04-20 | Outpatient (CLI) | payer OTHER | END | disposition home or self-care (01) | LOC: C.LAB1850 08:21 | PROVIDERS: ATTEND Internal Medicine Endocrinology, Diabetes & Metabolism | DX: E03.9 Hypothyroidism, unspecified (principal) ==